=== PATIENT | female | born 1990 | race Two or more races ===

== ENCOUNTER → 2022-09-01 12:34 | Outpatient (BNVA) | payer OTHER, SELFPAY | PROVIDERS: Visit Provider Physician Assistant Medical | DX: S93.491A Sprain of other ligament of right ankle, initial encounter (principal); W01.0XXA Fall on same level from slipping, tripping and stumbling without subsequent striking against object, initial encounter | CPT/HCPCS: 99203 ==

== ENCOUNTER → 2022-09-08 13:02 | Outpatient (BNVA) | payer OTHER, SELFPAY | PROVIDERS: Visit Provider Physician Assistant Medical | DX: S93.491A Sprain of other ligament of right ankle, initial encounter (principal); S82.51XA Displaced fracture of medial malleolus of right tibia, initial encounter for closed fracture; W01.0XXA Fall on same level from slipping, tripping and stumbling without subsequent striking against object, initial encounter | CPT/HCPCS: 99213 ==

== ENCOUNTER 2022-09-17 09:19 | Outpatient (REF) | payer OTHER, SELFPAY ==
--- NOTE | ~2022-09-17 | XR_ITS ---
EXAMINATION: XR ANKLE, RIGHT CLINICAL INFORMATION: Ankle and foot pain COMPARISON: None available. TECHNIQUE: AP, lateral, and mortise views of the right ankle. FINDINGS: There is large amount soft tissue swelling seen about the lateral malleolus and anterior ankle. No evidence of acute avulsion fracture is seen. There is a 2 mm calcific density seen about the dorsum of the mid talar bone but without adjacent inflammatory change. Plantar calcaneal spur present. Ankle mortise intact. XR/XR ankle RT min 3V IMPRESSION: Soft tissue swelling without evidence of acute fracture or dislocation of the right ankle.
== END 2022-09-17 09:20 | disposition home or self-care (01) ==
LOC: HO.HOSX 09:19
PROVIDERS: Visit Provider Physician Assistant
DX: S93.401A Sprain of unspecified ligament of right ankle, initial encounter (principal)
CPT/HCPCS: 73610; 99202

== ENCOUNTER → 2022-09-21 13:12 | Outpatient (BNVA) | payer OTHER, SELFPAY | PROVIDERS: PCP Internal Medicine; Visit Provider Physician Assistant Medical | DX: S93.491A Sprain of other ligament of right ankle, initial encounter (principal); W01.0XXA Fall on same level from slipping, tripping and stumbling without subsequent striking against object, initial encounter | CPT/HCPCS: 99213 ==

== ENCOUNTER 2022-10-15 10:10 | Outpatient (AMB) | payer OTHER, SELFPAY ==
--- NOTE | 2022-10-15 10:16 | A.OFFVIS_ITS ---
Intake Vital Signs 10/15/22 10:29 Height 5 ft 4 in Weight 208 lb BMI 35.7 Intake Visit Reasons: R ankle sprain & medial malleolus avalsion fx Intake Note: Nikkie is a 31 year old female who presents today for a follow up for her right ankle pain, DOI 08/28/22. Patient reports her job wants more clarification on work restrictions. Patient continues to have swelling that will cause most her pain. Continues to wear boot as instructed. Allergies No Known Allergies Allergy (Verified 10/15/22 10:26) HPI R ankle sprain & medial malleolus avalsion fx HPI Details 32-year-old female who presents in the office today for a follow up of her right ankle sprain. The patient reports her job would like more clarification on work restrictions. She continues to have edema that causes most of her pain. She confirms she continues to wear that boot while out of the house. She states driving causing her a lot of pain. Patient works at [employer]. [facility] Surgical History Hx of breast reduction, elective Social History Patient Tobacco Use Status: Never used Tobacco Current occupational status: employed and unemployed Current occupation: [employer] Review of Systems Const All systems reviewed & are unremarkable except as noted in HPI and below Physical Exam Vital Signs: BMI result Body Mass Index 35.7 Const General: cooperative and no acute distress Orientation/consciousness: patient oriented x3 Resp Effort & Inspection: normal respiratory effort and able to speak in complete sentences Cardio Peripheral pulses: Peripheral pulses 2+ throughout Neuro General: patient oriented x3 Extrem Other: Right ankle: Resolved ecchymosis. Able to dorsiflex and plantarflex but is slightly limited due to pain. Sensation intact. Pedal pulse intact. Psych Mental Status: mental status grossly normal Assessment & Plan Assessment & Plan (1) Right ankle sprain: Code(s): S93.401A - Sprain of unspecified ligament of right ankle, initial encounter Plan Ms. Alvarado is a 32-year-old female who presents in the office today for a follow up of her right ankle sprain. The patient reports her job would like more elkin fication on work restrictions. She continues to have edema that causes most of her pain. She confirms she continues to wear that boot while out of the house. She states driving causing her a lot of pain. 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 I educated the patient that if she is wearing the boot she can not drive. She will begin to wean out of the boot at this time. I recommended for the patient to wear a brace to help support the ankle while she is working. She will continue to work with physical therapy, out of the boot. She needs to begin to work on ROM and strengthening of the ankle. I sent a prescription for diclofenac 75 mg PO BID. to the pharmacy. She needs to elevate and ice the ankle while at home as much as possible. The patient was given a work note stating she can not drive for longer then an hour, she is not permitted to transport children, and she can only walk 1-2 flights of stairs until her follow up. Follow up will be in 6 weeks, or sooner if needed. X-rays of the right ankle which were obtained while in the office today and were reviewed by me, Paula Linares PA-C, revealed no acute fractures or dislocation. Orders: Orders XR ankle RT min 3V Today M25.579 - Pain in unspecified ankle and joints of unspecified foot Medications: New diclofenac sodium 75 mg PO BID PRN 60 tabs 0RF pain Patient Instructions: Scribed for Paula Linares PA-C by Barbara Caban certified medical coding specialist, on 10/15/2022 at 10:33 am, EST. Your attestation Coding Level of Care Code Est Pt Level 3 (97880) Diagnoses Right ankle sprain S93.401A
[2022-10-15 10:29] VITALS: BMI 35.7
== END 2022-10-15 11:25 | disposition home or self-care (01) ==
PROVIDERS: PCP Internal Medicine; Visit Provider Physician Assistant
DX: S93.401A Sprain of unspecified ligament of right ankle, initial encounter (principal)
CPT/HCPCS: 99213

== ENCOUNTER 2022-10-15 10:10 | Outpatient (REF) | payer OTHER, SELFPAY ==
--- NOTE | ~2022-10-15 | XR_ITS ---
EXAMINATION: XR ANKLE, RIGHT CLINICAL INFORMATION: Right ankle pain. COMPARISON: None available. TECHNIQUE: AP, lateral, and mortise views of the right ankle. FINDINGS: Large amount of soft tissue swelling at the ankle. Moderate plantar calcaneal spur. Ankle mortise is intact. No displaced fracture. XR/XR ankle RT min 3V IMPRESSION: Large amount of soft tissue swelling most notable at the anterior aspect of the ankle and lateral malleolus. No displaced fracture. Recommend follow-up imaging in 10-14 days if fracture is suspected.
== END 2022-10-15 10:11 | disposition home or self-care (01) ==
LOC: HO.HOSX 10:10
PROVIDERS: PCP Internal Medicine; Visit Provider Physician Assistant
DX: S93.401A Sprain of unspecified ligament of right ankle, initial encounter (principal)
CPT/HCPCS: 73610; 99212

== ENCOUNTER → 2022-10-26 11:15 | Outpatient (BNVA) | payer OTHER, SELFPAY | PROVIDERS: PCP Internal Medicine; Visit Provider Physician Assistant Medical | DX: S93.491D Sprain of other ligament of right ankle, subsequent encounter (principal); W01.0XXD Fall on same level from slipping, tripping and stumbling without subsequent striking against object, subsequent encounter | CPT/HCPCS: 99213 ==

== ENCOUNTER 2022-11-26 13:25 | Outpatient (AMB) | payer OTHER, SELFPAY ==
--- NOTE | 2022-11-26 13:26 | MHC.OFFVIS ---
Intake Vital Signs 11/26/22 13:31 Height 5 ft 4 in Weight 208 lb BMI 35.7 Intake Visit Reasons: OV - right ankle pain, DOI 08/28/22 Intake Note: Nikkie is a 31 year old female who presents today for a follow up for her right ankle pain, DOI 08/28/22. Patient reports her ankle improved slightly. She states that her ankle tends to get stiff on her when she drives, which she has to cake puller. Allergies No Known Allergies Allergy (Verified 11/26/22 13:26) HPI OV - right ankle pain, DOI 08/28/22 HPI Details 32-year-old female who presents in the office today for a follow up of her right ankle sprain, which occurred on 09/17/2022 status post getting her foot caught between the gap of the elevator and stairs. She reports a slight improvement in the right ankle. She claims to have stiffness when she is driving and has to pull the car over. 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 [facility] Surgical History Hx of breast reduction, elective Social History Patient Tobacco Use Status: Never used Tobacco Current occupational status: employed and unemployed Current occupation: [employer] Review of Systems Const All systems reviewed & are unremarkable except as noted in HPI and below Physical Exam Vital Signs: BMI result Body Mass Index 35.7 Const General: cooperative, healthy appearing and no acute distress Resp Effort & Inspection: normal respiratory effort and able to speak in complete sentences Cardio Rate: regular rate Peripheral pulses: Peripheral pulses 2+ throughout GI Palpation (GI): Soft to palpation Skin Lesions: no lesions Rashes: no rashes Extrem Other: Right ankle: No ecchymosis or erythema. Mild edema. Able to perform ROM to end range with very slight limitation. Negative anterior drawer. No tenderness to palpation medial, lateral, or anterior ankle. Sensation intact. Pedal pulse intact. Assessment & Plan Assessment & Plan (1) Right ankle sprain: Code(s): S93.401A - Sprain of unspecified ligament of right ankle, initial encounter Plan Ms. Alvarado is a 32-year-old female who presents in the office today for a follow up of her right ankle sprain, which occurred on 09/17/2022 status post getting her foot caught between the gap of the elevator and stairs. She reports a slight improvement in the right ankle. She claims to have stiffness when she is driving and has to pull the car over. 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 The patient will continue to work with Physical therapy on balance and proprioception. She was given a compression sleeve, off the shelf, while in the office today for ambulation and to help with edema. She was given an updated work note stating she may not drive longer then an hour, she is not permitted to drive children, she can not ambulate more then 3 flights of stairs until re-evaluation at her follow up. Follow up will be in 4-6 weeks, or sooner if needed. Patient Instructions: Scribed for Paula Linares PA-C by Barbara Caban medical billing supervisor, on 11/26/2022 at 1:27 pm, EST. Coding Level of Care Code Est Pt Level 3 (98950) Diagnoses Right ankle sprain S93.401A
[2022-11-26 13:31] VITALS: BMI 35.7
== END 2022-11-26 13:55 | disposition home or self-care (01) ==
PROVIDERS: PCP Internal Medicine; Visit Provider Physician Assistant
DX: S93.401A Sprain of unspecified ligament of right ankle, initial encounter (principal)
CPT/HCPCS: 99213

== ENCOUNTER → 2022-11-26 13:25 | Outpatient (BNVA) | payer OTHER, SELFPAY | PROVIDERS: PCP Internal Medicine; Visit Provider Physician Assistant | DX: M25.571 Pain in right ankle and joints of right foot (principal); S93.401A Sprain of unspecified ligament of right ankle, initial encounter; W23.2XXA Caught, crushed, jammed or pinched between a moving and stationary object, initial encounter; Y93.01 Activity, walking, marching and hiking; Y92.9 Unspecified place or not applicable; Y99.9 Unspecified external cause status | CPT/HCPCS: 99212 ==

== ENCOUNTER 2022-12-07 08:00 | Outpatient (RCR) | payer OTHER, SELFPAY ==
--- NOTE | 2022-10-01 11:01 | MHC.PT.EP ---
[facility] [place] Office [place] Office [place] Office [address] Aj Rousseau [address] [phone] F: [phone] F: [phone] F: [phone] F: [phone] Physical Therapy Plan of Care Date of Evaluation: Date of Surgery: Diagnosis: sprain of unspecified ligament of R ankle Assessment: 32 y/o female referred to PT with R ankle sprain that occurred 08/28/22. Injury occurred when she was at [facility] picking up a child for work and she tripped and fell in a gap in the elevator. X-rays negative for fx. She was given a ?lace-up brace and crutches that she used for 2 weeks and then was provided a tall walking boot that she has been wearing 2 weeks and is supposed to wear until her next visit with orthopedics on 10/15. Currently she reports pain and difficulty with driving, walking, stairs, and standing. Examination shows decreased R ankle A/PROM, decreased R ankle strength, increased swelling, and impaired gait pattern. Recommend PT 2x/week for 4 weeks to address impairments, implement HEP, and optimize functional mobility. Frequency and Duration: The patient will be seen 2x/week for 4 weeks Short Term Goals: 2 weeks Compliant with HEP Improve R ankle dorsiflexion to 8* to faciliate stair management Improve R ankle plantarflexion to 40* to faciliate gait [employer] Goals: 4 weeks I with HEP and self management of sx Pt will be able to ascend/ descend stairs in step through pattern with pain < 3/10 Pt will be able to ambulate with step through gait pattern and no boot with pain < 3/10 Treatment Plan: Modalities to reduce pain, spasms and effusion. Manual therapy to restore motion and function. Therapeutic exercise to improve strength and flexibility. Neuromuscular re-education for posture and balance. Therapeutic activities to return to functional activities of daily living. Electronically signed by: Inna Bedolla PT Please sign and return to therapist. Thank you for your referral.
--- NOTE | 2023-01-07 08:52 | MHC.PT.DC ---
[facility] [place] Office [place] Office [place] Office [address] Aj Rousseau [address] [phone] F: [phone] F: [phone] F: [phone] F: [phone] Physical Therapy Discharge Report Diagnosis: sprain of unspecified ligament of R ankle Date of Surgery: Date of Evaluation: 10/01/22 Date of Discharge: 01/07/23 Treatments to Date: 16 Cancellations to Date: 1 No Shows to Date: 2 Discharge Status: Improved Function Independent with HEP Discharge Summary: Pt did not attend final 2 visits (no show visit and reports had COVID). At time of last attended visits, pt was making progress with functional mobility and exercise progression. Her balance and proprioception were equally challenged on each ankle with some lateral sway but no increase in pain. She asked if she could return to the gym and to [place] classes. Recommended she return to gym for elliptical and strengthening, but she should hold ny at this time and focus on HEP of balance/ proprio exercises. These exercises were reviewed. Pt did not f/u with final visits and is therefore d/c at this time Electronically signed by: Inna Bedolla PT Please sign and return to therapist. Thank you for your referral.
== END 2023-01-07 08:52 | disposition home or self-care (01) ==
LOC: HO.PT 08:00
PROVIDERS: PCP Internal Medicine; Visit Provider Physician Assistant
DX: S93.401A Sprain of unspecified ligament of right ankle, initial encounter (principal)
CPT/HCPCS: 97110; 97112; 97140; 97161; 97530

== ENCOUNTER → 2022-12-21 09:15 | Outpatient (BNVA) | payer OTHER, SELFPAY | PROVIDERS: PCP Internal Medicine; Visit Provider Physician Assistant Medical | DX: S93.491D Sprain of other ligament of right ankle, subsequent encounter (principal); X50.1XXD Overexertion from prolonged static or awkward postures, subsequent encounter | CPT/HCPCS: 99213 ==

== ENCOUNTER 2022-12-31 13:14 | Outpatient (AMB) | payer OTHER, SELFPAY ==
--- NOTE | 2022-12-31 13:32 | MHC.OFFVIS ---
Intake Vital Signs 12/31/22 13:33 Height 5 ft 4 in Weight 208 lb BMI 35.7 Intake Visit Reasons: OV - right ankle pain, DOI 08/28/22 Intake Note: Nikkie is a 31 year old female who presents today for a follow up for her right ankle pain s/p therapy DOI 08/28/22. Patient reports she has completed P.T with improvement. Currently states she has some swelling due to going up and down stairs. Allergies No Known Allergies Allergy (Verified 12/31/22 13:41) HPI OV - right ankle pain, DOI 08/28/22 HPI Details 32-year-old female who presents in the office today for a follow up of her right ankle sprain, which occurred on 09/17/2022 status post getting her foot caught between the gap of the elevator and stairs. The patient reports she has completed physical therapy with improvement. She states she currently has some edema due to going up and down stairs. She reports soreness in the ankle. [facility] Surgical History Hx of breast reduction, elective Social History Patient Tobacco Use Status: Never used Tobacco Current occupational status: employed and unemployed Current occupation: [employer] Review of Systems Const All systems reviewed & are unremarkable except as noted in HPI and below Physical Exam Vital Signs: BMI result Body Mass Index 35.7 Const General: cooperative, healthy appearing and no acute distress Resp Effort & Inspection: normal respiratory effort and able to speak in complete sentences Cardio Rate: regular rate Peripheral pulses: Peripheral pulses 2+ throughout GI Palpation (GI): Soft to palpation Skin Lesions: no lesions Rashes: no rashes Extrem Other: Right ankle: Normal to inspection. No ecchymosis, erythema, or edema. Patient is able to demonstrate dorsiflexion, plantar flexion, pronation and supination. Negative anterior drawer. Sensation intact. Pedal Pulse intact. Assessment & Plan Assessment & Plan (1) Right ankle sprain: Code(s): S93.401A - Sprain of unspecified ligament of right ankle, initial encounter Qualifiers: Encounter type: subsequent encounter Involved ligament of ankle: unspecified ligament Qualified Code(s): S93.401D - Sprain of unspecified ligament of right ankle, subsequent encounter Plan Ms. Alvarado is a 32-year-old female who presents in the office today for a follow up of her right ankle sprain, which occurred on 09/17/2022 status post getting her foot caught between the gap of the elevator and stairs. The patient reports she has completed physical therapy with improvement. She states she currently has some edema due to going up and down stairs. She reports soreness in the ankle. The patient will return to normal activities as tolerated. 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 Follow up will be PRN, or sooner if needed. Patient Instructions: Scribed for Paula Linares PA-C by Barbara Caban medical office worker, on 12/31/2022 at 1:43 pm, EST. Coding Level of Care Code Est Pt Level 3 (33235) Diagnoses Sprain of right ankle, unspecified ligament, subsequent encounter S93.401D Encounter type: subsequent encounter Involved ligament of ankle: unspecified ligament
[2022-12-31 13:33] VITALS: BMI 35.7
== END 2022-12-31 13:49 | disposition home or self-care (01) ==
PROVIDERS: PCP Internal Medicine; Visit Provider Physician Assistant
DX: S93.401D Sprain of unspecified ligament of right ankle, subsequent encounter (principal)
CPT/HCPCS: 99213

== ENCOUNTER → 2022-12-31 13:14 | Outpatient (BNVA) | payer OTHER, SELFPAY | PROVIDERS: PCP Internal Medicine; Visit Provider Physician Assistant | DX: S93.401D Sprain of unspecified ligament of right ankle, subsequent encounter (principal) | CPT/HCPCS: 99212 ==